=== PATIENT | male | born 1940 | race Caucasian/White ===

== ENCOUNTER 2016-10-21 14:07 | Emergency (ER) | payer MEDICARE, BC ==
[~2016-10-21] VITALS: Ht 177.8 cm; Wt 77.0 kg
[~2016-10-21 14:07] MED LIST: BUSP10 PO; CLAR10TA7 PO; LISI10 PO; PRAV20 PO; TAB-TAB PO; TAMS5CAP PO; VITA200017 PO
[2016-10-21 14:14] VITALS: BP 154/76; PULSE 99; RESP 14; TEMP 98.2; O2SAT 98
--- NOTE | 2016-10-21 14:18 | PD ---
HPI Chief Complaint: Back/ Neck Pain or Injury Time Seen by Provider: 14:18 Travel History International Travel<30 days: No Contact w/Intl Traveler<30days: No Traveled to known affect area: No History of Present Illness HPI 76-year-old male presents to emergency Department with lower back pain which is been present for proximal 9 days. Patient denies any specific injury, but states he's had recurrent back pain in the past which typically responds well to prednisone. Patient states an aching sharp pain in the upper lumbar region but denies radicular symptoms at this time. Patient denies fever , chills, urinary symptoms, or abdominal pain. Patient denies numbness or tingling in the lower extremities. Patient states he went to a chiropractor several days ago who took x-rays and did some chiropractic manipulation without improvement. Patient feels the pain is not worsening but not getting better. Patient is allergic to Avelox, Bactrim, and penicillin. PFSH Past Medical History Anxiety: Yes Depression: Yes High Cholesterol: Yes Genitourinary: Yes (ENLARGED PROSTATE) Hypertension: Yes Past Surgical History Genitourinary Surgery: Yes (PROSTATE) Social History Alcohol Use: Yes (5 BEERS/DAILY) Tobacco Use: Yes (3 CIG/DAILY) Substance Use: No Allergies-Medications (Allergen,Severity, Reaction): Coded Allergies: Penicillin (Verified Allergy, Severe, 09/24/13) Avelox (Verified Allergy, 09/24/13) Bactrim (Verified Allergy, 09/24/13) Reported Meds & Prescriptions Reported Meds & Active Scripts Active Reported Claritin (Loratadine) 10 Mg Cap 10 Mg PO DAILY D3 Super Strength (Cholecalciferol) 2,000 Unit Cap 2,000 Units PO DAILY Multiple Vitamin 1 Tab 1 Tab PO DAILY Lisinopril 10 Mg Tab 10 Mg PO DAILY Flomax (Tamsulosin HCl) 0.4 Mg Cap 0.4 Mg PO HS Pravastatin 20 Mg Tab 20 Mg PO DAILY Buspirone (Buspirone HCl) 15 Mg Tab 15 Mg PO BID Review of Systems Except as stated in HPI: all other systems reviewed are Neg General / Constitutional: No: Fever Eyes: No: Visual changes HENT: No: Headaches Cardiovascular: No: Chest Pain or Discomfort Respiratory: No: Shortness of Breath Gastrointestinal: No: Abdominal Pain Genitourinary: No: Dysuria Musculoskeletal: Positive: Arthralgias, Pain Skin: No Rash Neurologic: No: Weakness Psychiatric: No: Depression Endocrine: No: Polydipsia Hematologic/Lymphatic: No: Easy Bruising Physical Exam Narrative GENERAL: Patient appears in no acute distress. SKIN: Warm and dry. Normal color. Normal turgor. No rash. HEAD: Atraumatic. Normocephalic. EYES: Pupils equal and round. No scleral icterus. No injection or drainage. ENT: No nasal bleeding or discharge. Mucous membranes pink and moist. NECK: Trachea midline. No JVD. Supple and nontender. CARDIOVASCULAR: Regular rate and rhythm. RESPIRATORY: No accessory muscle use. Clear to auscultation. Breath sounds equal bilaterally. GASTROINTESTINAL: Abdomen soft, non-tender, nondistended. Hepatic and splenic margins not palpable. No CVA tenderness. MUSCULOSKELETAL: Extremities without clubbing, cyanosis, or edema. No obvious deformities. Patient has tenderness with palpation along the L2-L3 region of the lumbar spine bilaterally, without radicular symptoms. No bony step-offs appreciated. NEUROLOGICAL: Awake and alert. No obvious cranial nerve deficits. Motor grossly within normal limits. Five out of 5 muscle strength in the arms and legs. Normal speech. Negative straight leg raise bilaterally in the lower extremities. PSYCHIATRIC: Appropriate mood and affect; insight and judgment normal. Data Data Last Documented VS Vital Signs Date Time Temp Pulse Resp B/P Pulse Ox O2 Delivery O2 Flow Rate FiO2 10/21/16 14:19 98.2 99 14 154/76 98 10/21/16 14:14 Room Air Orders Dexamethasone Inj (Decadron Inj) (10/21/16 14:30) [facility] Medical Decision Making Medical Screen Exam Complete: Yes Emergency Medical Condition: Yes Differential Diagnosis Low back pain. Lumbago. Arthritis. Narrative Course Patient is medically stable at time of exam. Radiographic imaging is not felt warranted based on the patient's history and physical. Patient is given Decadron 10 mg IM. Patient will be treated with prednisone 20 mg daily for the next 7 days. Patient can take Tylenol as needed as well. Patient should follow up if symptoms do not improve or worsen with the above treatment plan. Diagnosis Primary Impression: Lumbago without sciatica Qualified Code: M54.5 - Acute midline low back pain without sciatica Patient Instructions: Acute Low Back Pain (ED), General Instructions, Lower Back Exercises (ED) Additional Instructions: Radiographic imaging is not felt warranted based on the patient's history and physical. Patient is given Decadron 10 mg IM. Patient will be treated with prednisone 20 mg daily for the next 7 days. Patient can take Tylenol as needed as well. Patient should follow up if symptoms do not improve or worsen with the above treatment plan. Med/Other Pt SpecificInfo: Prescription(s) given Scripts Prednisone 20 Mg Tab20 Mg PO DAILY #7 TAB Prov:Mary Valenzuela MD 10/21/16 Disposition: 01 DISCHARGE HOME Condition: Stable Corona Isaac Oct 21, 2016 14:18
[2016-10-21 14:19] VITALS: BP 154/76; PULSE 99; RESP 14; TEMP 98.2; O2SAT 98
[2016-10-21] MEDS ORDERED: DEXAMETHASONE SOD PHOS 20 MG/5 ML VIAL IM ONE (14:30)
[2016-10-21] MEDS ORDERED: LISI10TA3 PO (14:34)
[2016-10-21] MEDS ORDERED: TAMS5CAP PO (14:34)
[2016-10-21] MEDS ORDERED: MULTTAB67 PO (14:34)
[2016-10-21] MEDS ORDERED: CLAR10CA3 PO (14:34)
[2016-10-21] MEDS ORDERED: PRAV20TA2 PO (14:34)
[2016-10-21] MEDS ORDERED: CHOL20005 PO (14:34)
[2016-10-21] MEDS ORDERED: BUSP15TA PO (14:34)
[2016-10-21] MEDS ORDERED: PRED20 PO (14:35)
== END 2016-10-21 15:09 | disposition home or self-care (01) ==
LOC: PHEFT 14:07
DX: M54.5 Low back pain (principal)
CPT/HCPCS: 96372; 99283; J1100